=== PATIENT | female | born 1985 | race Caucasian/White ===

== ENCOUNTER 2020-02-09 08:53 | Emergency (ER) | payer OTHER ==
[~2020-02-09] VITALS: Ht 165.1 cm; Wt 104.3 kg
[2020-02-09 09:00] VITALS: BP 149/121
--- NOTE | 2020-02-09 09:00 | NUR ---
PT [place] [employer] FOR PREBOOK. PT WAS ATTMEPTING TO STEAL CAR. PT ADMITS TO METH USE. DENIES ALCOHOL. PTS HR 150S. PT EXTREMELY AGITATED AND RESTLESS. RA. PT AMBULATORY IN HANDCUFFS MEDS: UNOBTAINABLE ALLERGY-UNOBTAINABLE
[2020-02-09] MEDS ORDERED: LORazepam 2 MG/ML VIAL IM ONE ×3 (09:15→10:05)
--- NOTE | 2020-02-09 09:15 | NUR ---
[facility] IM ADMINISTERED BY SEBASTIEN LOVE. PT IN HANDCUFFS. [place] PD AT BEDSIDE. PT YELLING AND ROLLING IN BED.
--- NOTE | 2020-02-09 09:20 | NUR ---
pd phleb at bedside
--- NOTE | 2020-02-09 09:37 | NUR ---
[facility] ADMINISTERED IM. PT CONTINUES TO CHARY AND BRISEYDA AT [facility]
--- NOTE | 2020-02-09 10:32 | NUR ---
PT STARTING TO CALM IN BED. NO LONGER YELLING. [place] PD REMIANS AT BEDSIDE AND PT REMAINS IN HANDCUFFS.
[2020-02-09 10:35] VITALS: BP 107/75
--- NOTE | 2020-02-09 10:35 | NUR ---
Patient discharged with v/s stable. Written and verbal after care instructions given and explained. Patient alert, oriented and verbalized understanding of instructions. Police with in custody. All questions addressed prior to discharge. ID band removed. Patient advised to follow up with PMD. No Rx given. Patient educated on indication of medication including possible reaction and side effects. Opportunity to ask questions provided and answered.
== END 2020-02-09 10:35 ==
LOC: MED 08:53
DX: F15.129 Other stimulant abuse with intoxication, unspecified (principal); R41.82 Altered mental status, unspecified; Z02.89 Encounter for other administrative examinations
CPT/HCPCS: 96372; 99284; J2060; 99281

== ENCOUNTER 2020-05-21 10:16 | Emergency (ER) | payer OTHER, SELFPAY ==
[~2020-05-21] VITALS: Ht 162.6 cm; Wt 95.3 kg
[2020-05-21 10:38] VITALS: BP 113/69
--- NOTE | 2020-05-21 10:42 | NUR ---
Pt c/o cough and body aches since yesterday. + covid contact. medhx: htn
--- NOTE | 2020-05-21 11:04 | NUR ---
Dr. Lyon is evaluating the patient in the OF tent.
--- NOTE | 2020-05-21 11:07 | NUR ---
COVID SWAB SENT TO LAB.
[2020-05-21 11:33] VITALS: BP 113/69
--- NOTE | 2020-05-21 11:34 | NUR ---
Patient discharged with v/s stable. Written and verbal after care instructions given and explained. Patient verbalized understanding. Ambulatory with steady gait. All questions addressed prior to discharge. Advised to follow up with PMD.
--- NOTE | 2020-05-22 20:34 | NUR ---
Positive COVID-19 test results were received from lab. A copy of the test results were given to Infection
== END 2020-05-21 11:32 | disposition home or self-care (01) ==
LOC: MED 10:16
DX: R05 Cough (principal); Z20.828 Contact with and (suspected) exposure to other viral communicable diseases; M79.10 Myalgia, unspecified site; I10 Essential (primary) hypertension
CPT/HCPCS: 99283; U0003

== ENCOUNTER 2020-07-06 09:22 | Emergency (ER) | payer OTHER, SELFPAY ==
[~2020-07-06] VITALS: Ht 162.6 cm; Wt 96.6 kg
[2020-07-06 09:36] VITALS: BP 126/68
[2020-07-06] MEDS ORDERED: NACL 0.9% 500 ML IV ONE (10:20)
[2020-07-06] MEDS ORDERED: ONDANSETRON 4 MG/2 ML VIAL IVP ONE (10:20)
[2020-07-06] MEDS ORDERED: KETOROLAC 30 MG/ML VIAL IVP ONE (10:20)
--- NOTE | 2020-07-06 10:41 | NUR ---
PT AMB TO BED 8
--- NOTE | 2020-07-06 10:45 | NUR ---
Note undone in ED - 07/06/20 at 1127 by CATE 35 Y/O F BIB SELF C/O ABDOMINAL PAIN X 2 DAYS. PT STATES RUQ DULL/CONSTANT 7/10 ABDOMINAL PAIN THAT RADIATES TO HER BACK. PT STATES ASSOCIATED 8/10 THROBBING HEADACHE THAT STARTS AT HER FOREHEAD AND MOVES TO THE BACK OF HER HEAD. (+) NAUSEA, VOMITING X 4 EPISODES 07/05-07/06. (-) DIZZINESS, BLURRY VISION, SOB, CP, PAINFUL URINATION. PT STATES THIS PAIN FEELS SIMILAR TO G[place]STONE EPISODES IN THE PAST. PT PLACED ON CAPSULE INSPECTOR, VSS. EQUAL CHEST RISE AND FALL. LUNG SOUNDS CLEAR. BOWEL SOUNDS PRESENT. BED LOCKED IN LOWEST POSITION, SIDE RAILS X2, CALL LIGHT IN REACH. PMH: PORTAL HTN, GALLSTONES Addendum: 07/06/20 at 1125 by CATE Amendment undone in ED - 07/06/20 at 1126 by CATE 35 Y/O F BIB SELF C/O ABDOMINAL PAIN X 2 DAYS. PT STATES RUQ DULL/CONSTANT 7/10 ABDOMINAL PAIN THAT RADIATES TO HER BACK. PT STATES ASSOCIATED 8/10 THROBBING HEADACHE THAT STARTS AT HER FOREHEAD AND MOVES TO THE BACK OF HER HEAD. PT STATES 07/05 SHE TOOK 800 MG OF TYLENOL WITH NO PAIN RELIEF. PT STATES THIS PAIN FEELS SIMILAR TO GALLSTONE EPISODES IN THE PAST. (+) NAUSEA, VOMITING X 4 EPISODES 07/05-07/06. (-) DIZZINESS, BLURRY VISION, SOB, CP, PAINFUL URINATION. PT PLACED ON CAPSULE INSPECTOR, VSS. EQUAL CHEST RISE AND FALL. LUNG SOUNDS CLEAR. BOWEL SOUNDS PRESENT. BED LOCKED IN LOWEST POSITION, SIDE RAILS X2, CALL LIGHT IN REACH. PMH: PORTAL HTN, GALLSTONES
--- NOTE | 2020-07-06 10:45 | NUR ---
35 Y/O F BIB SELF C/O ABDOMINAL PAIN X 2 DAYS. PT STATES RUQ DULL/CONSTANT 7/10 ABDOMINAL PAIN THAT RADIATES TO HER BACK. PT STATES ASSOCIATED 8/10 THROBBING HEADACHE THAT STARTS AT HER FOREHEAD AND MOVES TO THE BACK OF HER HEAD. PT STATES / SHE TOOK 800 MG OF TYLENOL WITH NO PAIN RELIEF. PT STATES THIS PAIN FEELS SIMILAR TO GALLSTONE EPISODES IN THE PAST. (+) NAUSEA, VOMITING X 4 EPISODES 07/05-07/06. (-) DIZZINESS, BLURRY VISION, SOB, CP, PAINFUL URINATION. PT PLACED ON LUMBER STRAIGHTENED, VSS. EQUAL CHEST RISE AND FALL. LUNG SOUNDS CLEAR. BOWEL SOUNDS PRESENT. BED LOCKED IN LOWEST POSITION, SIDE RAILS X2, CALL LIGHT IN REACH. PMH: PORTAL HTN, GALLSTONES
--- NOTE | 2020-07-06 10:50 | NUR ---
US AT BEDSIDE
--- NOTE | 2020-07-06 11:05 | NUR ---
BLOOD SAMPLES COLLECTED, WALKED TO LAB AND HANDED TO ANGÉLICA GALINDO
[2020-07-06 11:13] LABS: BASOPHILS % (AUTO) 0.6 % (0.0-2.0); EOSINOPHILS # (AUTO) 0.1 K/uL (0-0.4); EOSINOPHILS % (AUTO) 1.5 % (0.0-4.0); HEMATOCRIT 38.1 % (36-48); HEMOGLOBIN 12.9 g/dL (12.0-16.0); LYMPHOCYTES # (AUTO) 1.5 K/uL (2.5-16.5); LYMPHOCYTES % (AUTO) 29.1 % (20.5-51.1); MEAN CORPUSCULAR HEMOGLOBIN 31 pg (27-31); MEAN CORPUSCULAR HGB CONC 34 g/dL (33-37); MEAN CORPUSCULAR VOLUME 91.9 fL (80-94); MONOCYTES # (AUTO) 0.3 K/uL (0.8-1.0); MONOCYTES % (AUTO) 5.6 % (1.7-9.3); NEUTROPHILS # (AUTO) 3.3 K/uL (1.8-7.7); NEUTROPHILS % (AUTO) 63.2 % (42.2-75.2); PLATELET COUNT (AUTO) 309 K/uL (140-450); RED BLOOD CELL COUNT(AUTO) 4.14 MIL/uL (4.20-5.40); RED CELL DISTRIBUTION WIDTH 13.3 % (11.6-13.7); WHITE BLOOD COUNT (AUTO) 5.2 K/uL (4.8-10.8)
--- NOTE | 2020-07-06 11:24 | NUR ---
PT REPOSITIONED IN BED, LIGHTS TURNED OFF AND GIVEN BLANKET. ALL PT NEEDS MET AT THIS TIME. EQUAL CHEST RISE AND FALL. VSS. BED LOCKED IN LOWEST POSITION, SIDE RAILS X2, CALL LIGHT IN REACH
[2020-07-06 11:31] LABS: ALBUMIN 4.5 g/dL (3.4-5.0); ANION GAP 8.5 (8-16); CARBON DIOXIDE 31.1 mmol/L (21-32); CREATININE 0.7 mg/dL (0.6-1.3); POTASSIUM 3.6 mmol/L (3.5-5.1); TOTAL BILIRUBIN 0.5 mg/dL (0.0-1.0)
[2020-07-06 12:25] VITALS: BP 121/61
--- NOTE | 2020-07-06 12:25 | NUR ---
Patient discharged with v/s stable. Written and verbal after care instructions given and explained. Patient alert, oriented and verbalized understanding of instructions. Ambulatory with steady gait. All questions addressed prior to discharge. ID band removed. Patient advised to follow up with PMD. Rx of MOTRIN. ZOFRAN given. Patient educated on indication of medication including possible reaction and side effects. Opportunity to ask questions provided and answered.
== END 2020-07-06 12:25 | disposition home or self-care (01) ==
LOC: MED 09:22
DX: K80.20 Calculus of gallbladder without cholecystitis without obstruction (principal); U07.1 COVID-19
CPT/HCPCS: 36415; 76705; 80053; 81002; 81025; 83690; 85025; 96374; 96375; 99285; J1885; J2405; J7030

== ENCOUNTER 2020-09-01 16:19 | Emergency (ER) | payer OTHER, SELFPAY ==
[~2020-09-01] VITALS: Ht 162.6 cm; Wt 94.3 kg
[~2020-09-01 16:19] MED LIST: ACET-8386 PO; IBUP-2213 PO
[2020-09-01 16:24] VITALS: BP 101/64
[2020-09-01] MEDS ORDERED: DOXY-487 PO (17:45)
[2020-09-01] MEDS ORDERED: AZITHROMYCIN 250 MG TAB PO ONE (17:45)
[2020-09-01] MEDS ORDERED: cefTRIAXone 500 MG in LIDOCAINE MPF 1% 1 ML IM ONE (17:45)
[2020-09-01] MEDS ORDERED: LIDOCAINE MPF 1% 5 ML ONE (17:45)
[2020-09-01] MEDS ORDERED: cefTRIAXone 500 MG VIAL ONE (17:45)
[2020-09-01 17:56] LABS: APPEARANCE,URINE CLEAR (CLEAR); BILIRUBIN,URINE NEGATIVE (NEGATIVE); BLOOD, URINE NEGATIVE (NEGATIVE); COLOR,URINE YELLOW (YELLOW); LEUKOCYTE ESTERASE ,URINE 1+ (NEGATIVE); NITRITE, URINE NEGATIVE (NEGATIVE); PH,URINE 6.5 (5.0-9.0); UGLUCOSE NEGATIVE (NEGATIVE)
[2020-09-01 18:13] VITALS: BP 101/64
[2020-09-01 18:24] LABS: RBC,URINE 0-5 /HPF (0-5)
== END 2020-09-01 18:13 | disposition home or self-care (01) ==
LOC: MED 16:19
DX: N12 Tubulo-interstitial nephritis, not specified as acute or chronic (principal); Z11.3 Encounter for screening for infections with a predominantly sexual mode of transmission
CPT/HCPCS: 36415; 81001; 81025; 87086; 87491; 96372; 99283; J0696; J2001

== ENCOUNTER 2020-10-30 18:12 | Emergency (ER) | payer OTHER ==
[~2020-10-30] VITALS: Ht 162.6 cm; Wt 98.4 kg
[~2020-10-30 18:12] MED LIST changes: +DOXY-487 PO
[2020-10-30 18:26] VITALS: BP 134/63
--- NOTE | 2020-10-30 18:35 | NUR ---
Patient ambulated to bed 9. RN evaluating the patient at bedside.
--- NOTE | 2020-10-30 18:38 | NUR ---
35 y/o F brought in from home with c/c left knee pain since Thursday. Patient reports she was at the supermarket and her sandals got caught, causing her to have a mechanical fall to the floor. Patient states she hit her left knee. Patient reports left knee pain 9/10, "burning/constant," non-radiating pain. Patient reports slight pain to her left foot as well. Pt states Tylenol 500mg prior to arrival, ice/heat packs without relief. Pt denies LOC, dizziness, headache, blurry vision, any other recent trauma/falls/injuries. +CMS to left foot. PMH: Denies Meds: Denies NKA Sx: Cholecystectomy x 2 months ago
--- NOTE | 2020-10-30 18:39 | NUR ---
Dr. Mirza is evaluating patient at bedside.
[2020-10-30] MEDS ORDERED: KETOROLAC 30 MG/ML VIAL IM ONE (18:45)
--- NOTE | 2020-10-30 18:57 | NUR ---
finishing lab technician at bedside.
--- NOTE | 2020-10-30 19:12 | NUR ---
REPORT RECEIVED FROM KATE CORTEZ FOR CONTINUATION OF CARE.
--- NOTE | 2020-10-30 19:30 | NUR ---
PATIENT LAYING IN BED, HOB ELEVATED, REPORTS ONGOING KNEE PAIN ERMD MADE AWARE.
--- NOTE | 2020-10-30 19:30 | NUR ---
PATIENT ABLE TO MOVE HER L LEG/FOOT/KNEE/TOES, CAP REFILL <3 SEC, PULSES PRESENT BILATERALLY, MILD EDEMA NOTED TO BOTH FEET BILATERALLY.
[2020-10-30] MEDS ORDERED: NAPR-54 PO (19:42)
--- NOTE | 2020-10-30 20:45 | NUR ---
KNEE IMMOBILIZER PLACED ON PT L LEG AND FASTENED. +CSM
--- NOTE | 2020-10-30 20:46 | NUR ---
PT GIVEN INSTRUCTION ON PROPER USE OF CRUTCHES. CRUTCHES FITTED TO PT HEIGHT AND ARM LENGTH. PT DEMONSTRATED SAFE USE FOR APPROXIMATELY 40 FEET, PT STATED SHE FELT COMFORTABLE WITH USE.
[2020-10-30] MEDS ORDERED: ACETAMINOPHEN EXTRA STRENGTH 500 MG TAB PO ONE (21:00)
[2020-10-30 21:13] VITALS: BP 130/62
--- NOTE | 2020-10-30 21:13 | NUR ---
Patient discharged with v/s stable. Written and verbal after care instructions given and explained. Patient alert, oriented and verbalized understanding of instructions. Ambulatory with crutches with steady gait. All questions addressed prior to discharge. ID band removed. Patient advised to follow up with PMD. Rx of naprosyn given. Patient educated on indication of medication including possible reaction and side effects. Opportunity to ask questions provided and answered. Pt provided w/ an ice pack for comfort. per pt request contacted her fpc for a ride.
== END 2020-10-30 21:13 | disposition home or self-care (01) ==
LOC: MED 18:12
DX: S83.92XA Sprain of unspecified site of left knee, initial encounter (principal); Z90.49 Acquired absence of other specified parts of digestive tract; Z79.899 Other long term (current) drug therapy; W01.0XXA Fall on same level from slipping, tripping and stumbling without subsequent striking against object, initial encounter; Y93.89 Activity, other specified; Y92.89 Other specified places as the place of occurrence of the external cause; Y99.8 Other external cause status
CPT/HCPCS: 29505; 73562; 73630; 96372; 99284; J1885

== ENCOUNTER 2020-11-16 06:55 | Emergency (ER) | payer OTHER ==
[~2020-11-16] VITALS: Ht 162.6 cm; Wt 99.8 kg
[~2020-11-16 06:55] MED LIST changes: +NAPR-54 PO
[2020-11-16 07:07] VITALS: BP 118/66
[2020-11-16] MEDS ORDERED: BENZONATATE 100 MG CAPLF PO STA (07:13)
[2020-11-16] MEDS ORDERED: ALBUTEROL HFA MDI 90 MCG/ACTUATION 8 GM INH ONE (07:15)
[2020-11-16] MEDS ORDERED: ACETAMINOPHEN 325 MG TAB PO ONE (07:25)
[2020-11-16] MEDS ORDERED: ALBU0.0912 INH (09:29)
[2020-11-16] MEDS ORDERED: BENZ-196 PO (09:29)
[2020-11-16] MEDS ORDERED: APAP-896 PO (09:29)
[2020-11-16 09:41] VITALS: BP 118/66
== END 2020-11-16 09:42 | disposition home or self-care (01) ==
LOC: MED 06:55
DX: J06.9 Acute upper respiratory infection, unspecified (principal); J45.909 Unspecified asthma, uncomplicated; Z20.822 Contact with and (suspected) exposure to COVID-19
CPT/HCPCS: 87081; 87804; 94664; 99283; 99285; J3535; U0003

== ENCOUNTER 2020-11-26 16:55 | Emergency (ER) | payer OTHER ==
[~2020-11-26] VITALS: Ht 162.6 cm; Wt 98.9 kg
[~2020-11-26 16:55] MED LIST changes: +ALBU0.0912 INH; +APAP-896 PO; +BENZ-196 PO
[2020-11-26 17:26] VITALS: BP 113/74
[2020-11-26 18:18] LABS: BASOPHILS # (AUTO) 0.1 K/uL (0.00-0.22); BASOPHILS % (AUTO) 0.5 % (0.0-2.0); EOSINOPHILS # (AUTO) 0.1 K/uL (0-0.4); EOSINOPHILS % (AUTO) 0.7 % (0.0-4.0); LYMPHOCYTES # (AUTO) 1.9 K/uL (2.5-16.5); MEAN CORPUSCULAR HEMOGLOBIN 31 pg (27-31); MEAN CORPUSCULAR HGB CONC 34 g/dL (33-37); MEAN CORPUSCULAR VOLUME 90.2 fL (80-94); MONOCYTES # (AUTO) 0.6 K/uL (0.8-1.0); NEUTROPHILS # (AUTO) 7.5 K/uL (1.8-7.7); NEUTROPHILS % (AUTO) 73.8 % (42.2-75.2); PLATELET COUNT (AUTO) 352 K/uL (140-450); RED BLOOD CELL COUNT(AUTO) 4.55 MIL/uL (4.20-5.40); RED CELL DISTRIBUTION WIDTH 14.3 % (11.6-13.7); WHITE BLOOD COUNT (AUTO) 10.2 K/uL (4.8-10.8)
[2020-11-26 18:23] LABS: APPEARANCE,URINE CLEAR (CLEAR); BILIRUBIN,URINE NEGATIVE (NEGATIVE); BLOOD, URINE TRACE-L (NEGATIVE); COLOR,URINE YELLOW (YELLOW); LEUKOCYTE ESTERASE ,URINE TRACE (NEGATIVE); NITRITE, URINE NEGATIVE (NEGATIVE); UGLUCOSE NEGATIVE (NEGATIVE)
[2020-11-26 18:34] LABS: RBC,URINE 0-5 /HPF (0-5); WBC,URINE 0-5 /HPF (0-5)
[2020-11-26 19:01] LABS: ALBUMIN 4.5 g/dL (3.4-5.0); ANION GAP 10.7 (8-16); CARBON DIOXIDE 28.2 mmol/L (21-32); CREATININE 0.8 mg/dL (0.6-1.3); POTASSIUM 3.9 mmol/L (3.5-5.1); TOTAL BILIRUBIN 0.3 mg/dL (0.0-1.0)
--- NOTE | 2020-11-26 20:10 | NUR ---
PT AMBULATED TO BED 2
--- NOTE | 2020-11-26 20:15 | NUR ---
35/F PT C/O NAUSEA VOMITTING AND DIARRHEA WITH STOMACH ACHE 10/10 SHARP, CONSTANT STARTED TODAY. PT STATED SHE WENT ON A HIKE THIS MORNING WITH EMPTY STOMACH, THEN WENT HOME AND ATE SOME BURGER AND FRIES THEN DURING HER MEAL SHE HAD DIARRHEA. PT DENIES ANY FEVER, CHILLS, PAINFUL URINATION. PMH: PORTAL HTN, ASTHMA, GALL BLADDER REMOVAL. NKA
[2020-11-26] MEDS ORDERED: KETOROLAC 30 MG/ML VIAL IM ONE (20:30)
[2020-11-26] MEDS ORDERED: ONDANSETRON 4 MG ODT PO ONE (20:30)
[2020-11-26] MEDS ORDERED: ONDA-24 PO (22:42)
[2020-11-27] VITALS: BP 118/71
== END 2020-11-27 00:27 | disposition home or self-care (01) ==
LOC: MED 16:55
DX: R11.2 Nausea with vomiting, unspecified (principal); R19.7 Diarrhea, unspecified; R10.9 Unspecified abdominal pain; Z79.899 Other long term (current) drug therapy
CPT/HCPCS: 36415; 74176; 80053; 81001; 81025; 83690; 85025; 96372; 99284; J1885; Q0162

== ENCOUNTER 2021-01-07 17:33 | Emergency (ER) | payer OTHER ==
[~2021-01-07] VITALS: Ht 162.6 cm; Wt 104.8 kg
[~2021-01-07 17:33] MED LIST changes: +ONDA-24 PO
[2021-01-07 18:37] VITALS: BP 117/70
--- NOTE | 2021-01-07 18:43 | NUR ---
LOBBY. PT GIVEN URINE CUP
--- NOTE | 2021-01-07 18:58 | NUR ---
PT AMBULATED TO BRIAN. ARI MARTINEZ EVALUATING PT IN CHAIR.
[2021-01-07] MEDS ORDERED: NITR100C7 PO (18:59)
--- NOTE | 2021-01-07 19:08 | NUR ---
NO NURSING INTERVENTIONS PROVIDED. PT SEEN AND TREATED BY ARI MARTINEZ
--- NOTE | 2021-01-07 19:09 | NUR ---
Patient discharged with v/s stable. Written and verbal after care instructions ABOUT UTI AND MEDICATIONS given and explained. Patient alert, oriented and verbalized understanding of instructions. Ambulatory with steady gait. All questions addressed prior to discharge. ID band removed. Patient advised to follow up with PMD. Rx of MACROBID 100MG given. Patient educated on indication of medication including possible reaction and side effects. Opportunity to ask questions provided and answered.
[2021-01-07 19:11] VITALS: BP 117/70
== END 2021-01-07 19:09 | disposition home or self-care (01) ==
LOC: MED 17:33
DX: N39.0 Urinary tract infection, site not specified (principal); J45.909 Unspecified asthma, uncomplicated; Z90.49 Acquired absence of other specified parts of digestive tract; Z79.899 Other long term (current) drug therapy
CPT/HCPCS: 81002; 81025; 99283

== ENCOUNTER 2021-02-05 08:13 | Emergency (ER) | payer OTHER, SELFPAY ==
[~2021-02-05] VITALS: Ht 162.6 cm; Wt 108.0 kg
[~2021-02-05 08:13] MED LIST changes: +NITR100C7 PO
[2021-02-05 08:16] VITALS: BP 116/57
--- NOTE | 2021-02-05 08:25 | NUR ---
DR BLOCK EXAMINING PT IN TRIAGE
--- NOTE | 2021-02-05 08:30 | NUR ---
PT W/C ASSISSTED TO BED 04
--- NOTE | 2021-02-05 08:32 | NUR ---
received in bed 4, laying flat with pillow which is patients position of choice. Warm blanket applied for comfort.
[2021-02-05] MEDS ORDERED: LIDOCAINE MPF 1% 10 MG/ML VIAL INJ ONE (08:45)
[2021-02-05] MEDS ORDERED: KETOROLAC 60 MG/2 ML VIAL IM ONE (08:45)
--- NOTE | 2021-02-05 09:15 | NUR ---
RESTING QUIETLY, APPEARS COMFORTABLE.
--- NOTE | 2021-02-05 09:16 | NUR ---
medicated for pain, observed for effect.
[2021-02-05] MEDS ORDERED: LID5T TP (10:21)
--- NOTE | 2021-02-05 10:25 | NUR ---
DR BLOCK IN FOR REEVAL. PLAN IS TO DISCHARGE HOME WITH RX AND WORK NOTE. PATIENT AGREES WITH PLAN OF CARE.
[2021-02-05] MEDS ORDERED: IBUP-1842 PO (10:51)
--- NOTE | 2021-02-05 10:51 | NUR ---
Patient discharged with v/s stable. Written and verbal after care instructions ABOUT MEDICATIONS AND ACUTE BACK PAIN given and explained. Patient alert, oriented and verbalized understanding of instructions. Ambulatory with steady gait. All questions addressed prior to discharge. ID band removed. Patient advised to follow up with PMD. Rx of IBUPROFEN AND LIDOCAINE PATCH given. Patient educated on indication of medication including possible reaction and side effects. Opportunity to ask questions provided and answered.
== END 2021-02-05 10:51 | disposition home or self-care (01) ==
LOC: MED 08:13
DX: M54.5 Low back pain (principal); J45.909 Unspecified asthma, uncomplicated; Z90.49 Acquired absence of other specified parts of digestive tract; Z79.899 Other long term (current) drug therapy
CPT/HCPCS: 20552; 81025; 96372; 99283; J1885; J2001

== ENCOUNTER 2021-02-20 08:25 | Emergency (ER) | payer OTHER, SELFPAY ==
[~2021-02-20] VITALS: Ht 162.6 cm; Wt 104.3 kg
[~2021-02-20 08:25] MED LIST changes: +IBUP-1842 PO; +LID5T TP
[2021-02-20 08:35] VITALS: BP 115/76
--- NOTE | 2021-02-20 09:27 | NUR ---
35 YO FEMALE BIBS C/O LOWER BACK PAIN. 9/10 STABBING THAT RADIATES TO HIPS AND RIGHT LEG. PT STATES SHE WAS HERE X2 WEEKS AGO AND WAS TREATED, SINCE THEN THE PAIN HAS NOT GONE AWAY AND MEDICATION HAS NOT PROVIDED RELIEF. SHE HAS SEEN PCP WITHIN THE LAST 2 WEEKS AND WAS PRESCRIBED IBUPROFEN WHICH SHE STATES ALSO PROVIDES NO RELIEF. DENIES FEVER, CHILLS, SOB, N/V/D. A&OX4, RR EVEN AND UNLABORED. PMH: GALLBLADDER REMOVAL, FATTY LIVER, PORTAL HTN. NKDA
--- NOTE | 2021-02-20 09:59 | NUR ---
MD BLOCK AT BEDSIDE.
[2021-02-20] MEDS ORDERED: KETOROLAC 60 MG/2 ML VIAL IM ONE (10:05)
[2021-02-20] MEDS ORDERED: HYDROcodone/APAP 5/325 MG 1 TAB TAB PO ONE (10:05)
--- NOTE | 2021-02-20 10:29 | NUR ---
PT TRANSFERRED TO CT VIA [facility]
--- NOTE | 2021-02-20 11:00 | NUR ---
PATIENT RESTING IN BED, RR EVEN AND UNLABORED.
[2021-02-20] MEDS ORDERED: NAPR-1704 PO (11:32)
[2021-02-20 11:56] VITALS: BP 104/59
== END 2021-02-20 11:56 | disposition home or self-care (01) ==
LOC: MED 08:25
DX: M51.26 Other intervertebral disc displacement, lumbar region (principal); J45.909 Unspecified asthma, uncomplicated; Z79.899 Other long term (current) drug therapy
CPT/HCPCS: 72131; 81002; 81025; 96372; 99284; J1885

== ENCOUNTER 2021-04-18 10:32 | Emergency (ER) | payer OTHER, SELFPAY ==
[~2021-04-18] VITALS: Ht 162.6 cm; Wt 106.2 kg
[~2021-04-18 10:32] MED LIST changes: +NAPR-1704 PO
[2021-04-18 10:44] VITALS: BP 138/88
--- NOTE | 2021-04-18 11:20 | NUR ---
GREEN BUILDING ENERGY ENGINEER BEDSIDE COLLECTING BLOOD WORK
--- NOTE | 2021-04-18 11:24 | NUR ---
XRAY BEDSIDE WITH PATIENT
--- NOTE | 2021-04-18 11:35 | NUR ---
35 Y FEMLA WITH C/O INTERMITENT LEFT CHEST PAIN RADIATING TO HER NECK, L ARM, AND L SIDE. PT ALSO HAS C/O OF ENTIRE L SIDE PAIN THAT IS CONSTNANT FOR THE PAST 3 DAYS. PT HAS C/O HEADACHE, BLURRED VISION, AND LIGHT HEADENESS WELL. PT STATED "SHE DOESN'T FOOD GOOD AND JUST DOESN'T FEEL RIGHT." PT ALSO STATED SHE FEELS LIKE HER LE ARE SWOLLEN. UPON ASSESSMENT S1/S2 HEARD, BREATH SOUNDS CLEAR, AND PT IN NSR. NO EDEMA NOTED IN LE AT THIS TIME. PMH: HTN, GALL BLADDER REMOVAL, PORTAL HYPOTENSION NKA
--- NOTE | 2021-04-18 11:36 | NUR ---
PT PROVIDED WITH BLANKET BEDSIDE
[2021-04-18 11:38] LABS: BASOPHILS % (AUTO) 0.6 % (0.0-2.0); EOSINOPHILS # (AUTO) 0.2 K/uL (0-0.4); EOSINOPHILS % (AUTO) 2.7 % (0.0-4.0); HEMATOCRIT 37.8 % (36-48); HEMOGLOBIN 12.7 g/dL (12.0-16.0); LYMPHOCYTES # (AUTO) 1.7 K/uL (2.5-16.5); LYMPHOCYTES % (AUTO) 29.1 % (20.5-51.1); MEAN CORPUSCULAR HEMOGLOBIN 31 pg (27-31); MEAN CORPUSCULAR HGB CONC 34 g/dL (33-37); MEAN CORPUSCULAR VOLUME 93.2 fL (80-94); MONOCYTES # (AUTO) 0.4 K/uL (0.8-1.0); MONOCYTES % (AUTO) 7.5 % (1.7-9.3); NEUTROPHILS # (AUTO) 3.4 K/uL (1.8-7.7); NEUTROPHILS % (AUTO) 60.1 % (42.2-75.2); PLATELET COUNT (AUTO) 305 K/uL (140-450); RED BLOOD CELL COUNT(AUTO) 4.06 MIL/uL (4.20-5.40); RED CELL DISTRIBUTION WIDTH 13.6 % (11.6-13.7); WHITE BLOOD COUNT (AUTO) 5.7 K/uL (4.8-10.8)
--- NOTE | 2021-04-18 11:47 | NUR ---
dr. raya bedside evaluating pt
[2021-04-18 11:55] LABS: ALBUMIN 4.1 g/dL (3.4-5.0); ANION GAP 16.3 (8-16); CARBON DIOXIDE 25.5 mmol/L (21-32); CREATININE 0.8 mg/dL (0.6-1.3); POTASSIUM 3.8 mmol/L (3.5-5.1); TOTAL BILIRUBIN 0.4 mg/dL (0.0-1.0)
--- NOTE | 2021-04-18 12:58 | NUR ---
ULTRASOUND BEDSIDE WITH PATIENT
--- NOTE | 2021-04-18 13:49 | NUR ---
DR. GABRIEL BEDSIDE SPEAKING WITH PATIENT
[2021-04-18] MEDS ORDERED: KETOROLAC 60 MG/2 ML VIAL IM ONE (13:55)
[2021-04-18] MEDS ORDERED: DEXAMETHASONE 4 MG/ML VIAL PO ONE (13:55)
[2021-04-18] MEDS ORDERED: ACETAMINOPHEN 325 MG TAB PO ONE (13:55)
[2021-04-18] MEDS ORDERED: METH4TAB1 PO (14:00)
[2021-04-18] MEDS ORDERED: NAPR-54 PO (14:00)
[2021-04-18 14:22] VITALS: BP 142/72
--- NOTE | 2021-04-18 14:22 | NUR ---
Patient discharged with v/s stable. Written and verbal after care instructions given and explained. Patient alert, oriented and verbalized understanding of instructions. Ambulatory with steady gait. All questions addressed prior to discharge. ID band removed. Patient advised to follow up with PMD. Rx of MEDROL AND NAPROSYN given. Patient educated on indication of medication including possible reaction and side effects. Opportunity to ask questions provided and answered.
== END 2021-04-18 14:22 | disposition home or self-care (01) ==
LOC: MED 10:32
DX: R07.89 Other chest pain (principal); R60.0 Localized edema; I10 Essential (primary) hypertension; Z79.899 Other long term (current) drug therapy; Z90.49 Acquired absence of other specified parts of digestive tract; Z98.890 Other specified postprocedural states
CPT/HCPCS: 36415; 71045; 80053; 84484; 85025; 93005; 93971; 96372; 99285; J1100; J1885; Q0092

== ENCOUNTER 2021-05-01 12:12 | Emergency (ER) | payer OTHER, SELFPAY ==
[~2021-05-01] VITALS: Ht 162.6 cm; Wt 104.3 kg
[~2021-05-01 12:12] MED LIST changes: -ALBU0.0912 INH; -APAP-896 PO; -BENZ-196 PO; -DOXY-487 PO; -IBUP-1842 PO; +METH4TAB1 PO; -NAPR-1704 PO; -NITR100C7 PO; -ONDA-24 PO
[2021-05-01 12:35] VITALS: BP 127/81
[2021-05-01] MEDS ORDERED: PHEN177S23 PO (13:25)
[2021-05-01] MEDS ORDERED: AZIT250T4 PO (13:25)
[2021-05-01] MEDS ORDERED: PROM118S5 PO (13:25)
[2021-05-01] MEDS ORDERED: NAPR-54 PO (13:25)
[2021-05-01 13:46] VITALS: BP 127/81
--- NOTE | 2021-05-01 13:47 | NUR ---
Patient discharged with v/s stable. Written and verbal after care instructions given and explained. Patient alert, oriented and verbalized understanding of instructions. Ambulatory with steady gait. All questions addressed prior to discharge. ID band removed. Patient advised to follow up with PMD. Rx of AZITHROMYCIN, NAPROXEN, PHENOL, PROMETHAZINE SYRUP given. Patient educated on indication of medication including possible reaction and side effects. Opportunity to ask questions provided and answered.
== END 2021-05-01 13:47 | disposition home or self-care (01) ==
LOC: MED 12:12
DX: J02.9 Acute pharyngitis, unspecified (principal); Z20.822 Contact with and (suspected) exposure to COVID-19; M79.10 Myalgia, unspecified site; J45.909 Unspecified asthma, uncomplicated; I10 Essential (primary) hypertension; Z90.49 Acquired absence of other specified parts of digestive tract; Z79.899 Other long term (current) drug therapy
CPT/HCPCS: 71045; 99284; U0003

== ENCOUNTER 2021-07-28 19:57 | Emergency (ER) | payer OTHER, SELFPAY ==
[~2021-07-28] VITALS: Ht 162.6 cm; Wt 108.9 kg
[~2021-07-28 19:57] MED LIST changes: +AZIT250T4 PO; +PHEN177S23 PO; +PROM118S5 PO
[2021-07-28 20:08] VITALS: BP 128/90
[2021-07-28] MEDS ORDERED: ONDANSETRON 4 MG/2 ML VIAL IVP ONE (20:55)
[2021-07-28] MEDS ORDERED: ACETAMINOPHEN EXTRA STRENGTH 500 MG TAB PO ONE (20:55)
[2021-07-28] MEDS ORDERED: NACL 0.9% 1,000 ML IV ONE (20:55)
--- NOTE | 2021-07-28 22:00 | NUR ---
36 YO F BIB SELF WITH C/C OF ABD PAIN AND VOMITING XTODAY. PT HAS NOT HAD ANY EPISODES OF VOMITING IN ER. RECEIVED 2ND VACCINE ON THE . C/O SWELLING IN LEGS. HAS BEEN HERE BEFORE FOR SAME COMPLAINTS PMH : PORTAL HTN
[2021-07-28] MEDS ORDERED: KETOROLAC 15 MG/ML VIAL ONE (22:03)
--- NOTE | 2021-07-28 22:05 | NUR ---
RECEIVED VERBAL ORDER FROM TO GIVE PT TORADOL 15MG IVP.
[2021-07-28 22:16] LABS: BASOPHILS % (AUTO) 0.1 % (0.0-2.0); EOSINOPHILS # (AUTO) 0.1 K/uL (0-0.4); EOSINOPHILS % (AUTO) 1.5 % (0.0-4.0); HEMATOCRIT 38.6 % (36-48); HEMOGLOBIN 13.3 g/dL (12.0-16.0); LYMPHOCYTES # (AUTO) 0.5 K/uL (2.5-16.5); LYMPHOCYTES % (AUTO) 8.8 % (20.5-51.1); MEAN CORPUSCULAR HEMOGLOBIN 31 pg (27-31); MEAN CORPUSCULAR HGB CONC 34 g/dL (33-37); MEAN CORPUSCULAR VOLUME 90.1 fL (80-94); MONOCYTES # (AUTO) 0.3 K/uL (0.8-1.0); MONOCYTES % (AUTO) 5.5 % (1.7-9.3); NEUTROPHILS # (AUTO) 5.1 K/uL (1.8-7.7); NEUTROPHILS % (AUTO) 84.1 % (42.2-75.2); PLATELET COUNT (AUTO) 275 K/uL (140-450); RED BLOOD CELL COUNT(AUTO) 4.28 MIL/uL (4.20-5.40); RED CELL DISTRIBUTION WIDTH 13.7 % (11.6-13.7); WHITE BLOOD COUNT (AUTO) 6.1 K/uL (4.8-10.8)
[2021-07-28] MEDS ORDERED: KETOROLAC 15 MG/ML VIAL IVP ONE (22:20)
[2021-07-28 22:37] LABS: ALBUMIN 3.8 g/dL (3.4-5.0); ANION GAP 16.1 (8-16); CARBON DIOXIDE 24.6 mmol/L (21-32); CREATININE 0.8 mg/dL (0.6-1.3); POTASSIUM 3.7 mmol/L (3.5-5.1); TOTAL BILIRUBIN 0.6 mg/dL (0.0-1.0)
--- NOTE | 2021-07-29 00:41 | NUR ---
PT APPEARS TO RESTING. EYES ARE CLOSED, OPENS TO SOUND. VSS. PT IS IN STABLE CONDITION. ALL NEEDS MET AT THIS TIME. BED LOCKED IN LOWEST POSITION, SIDE RAILS X2 FOR SAFETY.
[2021-07-29] MEDS ORDERED: ONDA-188 PO (02:38)
--- NOTE | 2021-07-29 02:38 | NUR ---
VERBAL ORDER TO GIVE ZOFRAN 4MG IVP. ORDER CARRIED OUT.
[2021-07-29] MEDS ORDERED: ONDANSETRON 4 MG/2 ML VIAL IVP ONE (02:40)
[2021-07-29 02:45] VITALS: BP 110/58
== END 2021-07-29 02:45 | disposition home or self-care (01) ==
LOC: MED 19:57
DX: K56.7 Ileus, unspecified (principal); K76.0 Fatty (change of) liver, not elsewhere classified; Z20.822 Contact with and (suspected) exposure to COVID-19; R11.2 Nausea with vomiting, unspecified
CPT/HCPCS: 36415; 71045; 74177; 80053; 81025; 83690; 84484; 85025; 87426; 87804; 93005; 96361; 96374; 96375; 96376; 99285; J1885; J2405; J7030; Q0092; Q9967; U0003

== ENCOUNTER 2022-01-01 06:10 | Emergency (ER) | payer OTHER ==
[~2022-01-01] VITALS: Ht 162.6 cm; Wt 117.9 kg
[~2022-01-01 06:10] MED LIST changes: +ONDA-188 PO
[2022-01-01 06:30] VITALS: BP 101/66
--- NOTE | 2022-01-01 06:33 | NUR ---
to lobby a/w bed ambulatory
[2022-01-01 06:52] LABS: APPEARANCE,URINE CLEAR (CLEAR); BILIRUBIN,URINE NEGATIVE (NEGATIVE); BLOOD, URINE 1+ (NEGATIVE); COLOR,URINE YELLOW (YELLOW); LEUKOCYTE ESTERASE ,URINE 3+ (NEGATIVE); NITRITE, URINE NEGATIVE (NEGATIVE); UGLUCOSE NEGATIVE (NEGATIVE)
--- NOTE | 2022-01-01 06:54 | NUR ---
SEEN AND EXAMINED BY AMANDA
[2022-01-01] MEDS ORDERED: KETOROLAC 60 MG/2 ML VIAL IM ONE (07:30)
--- NOTE | 2022-01-01 07:48 | NUR ---
36/F PRESENTS TO ED WITH C/O LOWER BACK PAIN, DYSURIA AND INCREASED URINARY FREQUENCY X3 DAYS. PATIENT REPORTS MIGRAINE, NAUSEA AND PHOTOPHOBIA WELL. PATIENT REPORTS HX OF RECURRENT UTI'S, PATIENT REPORTS TAKING IBUPROFEN WITH NO RELIEF. PATIENT DENIES V/D, FEVER, COUGH OR RECENT SICK CONTACTS.
[2022-01-01] MEDS ORDERED: NITR100C7 PO (08:10)
[2022-01-01] MEDS ORDERED: ACET-9496 PO (08:10)
[2022-01-01] MEDS ORDERED: PHEN-1877 PO (08:10)
[2022-01-01] MEDS ORDERED: ONDA-188 PO (08:10)
[2022-01-01 08:18] VITALS: BP 101/66
--- NOTE | 2022-01-01 08:19 | NUR ---
Patient discharged with v/s stable. Written and verbal after care instructions ABOUT MIGRAINE AND UTI given and explained. Patient alert, oriented and verbalized understanding of instructions. Ambulatory with steady gait. All questions addressed prior to discharge. ID band removed. Patient advised to follow up with PMD. Rx of EXCEDRIN, MARCROBID, ZOFRAN AND PYRIDIUM given. Patient educated on indication of medication including possible reaction and side effects. Opportunity to ask questions provided and answered.
--- NOTE | 2022-01-03 19:00 | NUR ---
LATE ENTRY. RECEIVED POSITIVE URINE CULTURE. DISCREPANCY LOG SIGNED BY DR SARGENT. TREATMENT APPROPRIATE. FORM PLACED IN BINDER.
== END 2022-01-01 08:18 | disposition home or self-care (01) ==
LOC: MED 06:10
DX: N39.0 Urinary tract infection, site not specified (principal); G43.909 Migraine, unspecified, not intractable, without status migrainosus; J45.909 Unspecified asthma, uncomplicated; I10 Essential (primary) hypertension; I25.10 Atherosclerotic heart disease of native coronary artery without angina pectoris
CPT/HCPCS: 81001; 81025; 87086; 96372; 99283; J1885

== ENCOUNTER 2022-03-12 18:34 | Emergency (ER) | payer BC, OTHER ==
[~2022-03-12] VITALS: Ht 162.6 cm; Wt 122.5 kg
[~2022-03-12 18:34] MED LIST changes: +ACET-9496 PO; +NITR100C7 PO; +PHEN-1877 PO
[2022-03-12 18:36] VITALS: BP 145/92
--- NOTE | 2022-03-12 18:47 | NUR ---
PT AMB TO BED 8.
--- NOTE | 2022-03-12 19:02 | NUR ---
36/F PRESENTS TO ED WITH C/O LOWER ABD PAIN, BILATERAL FLANK PAIN AND DYSURIA X5 DAYS. REPORTS TAKING AZO WITH NO RELIEF, STATING PAIN WORSENING THE LAST TWO DAYS AND C/O NAUSEA AND DIARRHEA TODAY. PATIENT DENIES RECENT FEVERS, VOMITING, HEMATURIA OR RECENT SICK CONTACTS.
--- NOTE | 2022-03-12 19:11 | NUR ---
Pt report given to TOBIAS QUEEN. Transfer of care at this time.
--- NOTE | 2022-03-12 19:19 | NUR ---
DR HUTCHINS AT BEDSIDE
[2022-03-12] MEDS ORDERED: KETOROLAC 60 MG/2 ML VIAL IM ONE (19:25)
[2022-03-12] MEDS ORDERED: KETOROLAC 30 MG/ML VIAL IVP ONE (19:25)
[2022-03-12] MEDS ORDERED: ONDANSETRON 4 MG/2 ML VIAL IVP ONE (19:25)
[2022-03-12] MEDS ORDERED: NACL 0.9% 1,000 ML IV ONE (19:25)
[2022-03-12] MEDS ORDERED: PHEN-1877 PO ×4 (19:34→21:41)
[2022-03-12] MEDS ORDERED: IBUP-2213 PO ×4 (19:34→21:41)
[2022-03-12] MEDS ORDERED: CIPR500T4 PO ×4 (19:34→21:41)
[2022-03-12] MEDS ORDERED: ONDA8TAB87 PO ×4 (19:34→21:41)
--- NOTE | 2022-03-12 19:51 | NUR ---
36YR OLD FEMALE C/O UTI SX . PT STATES SHE HAS FREQ UTI IN THE PAST. SX FOR 5 DAYS DENIES FEVER CP SOB. LOWER ABD PAIN RADIATES TO LOWER BACK . PAIN LEVEL 9/10. PT IS A&OX4. SKIN WARM DRY AND INTACT. BED AT LOWEST LEVEL . SIDE RAILS UP X2. NDKA
[2022-03-12 20:42] VITALS: BP 118/73
--- NOTE | 2022-03-12 20:42 | NUR ---
Patient discharged with v/s stable. Written and verbal after care instructions given and explained. Patient alert, oriented and verbalized understanding of instructions. Ambulatory with steady gait. All questions addressed prior to discharge. ID band removed. Patient advised to follow up with PMD. Rx of CIPRO ZOFRAN PYRIDIUM given.
--- NOTE | 2022-03-12 21:05 | NUR ---
The patient's care was reviewed and supervised by Livia Gonzales RN, RN.
--- NOTE | 2022-03-14 19:27 | NUR ---
LATE ENTRY. RECEIVED POSITIVE URINE CULTURE. FORM SIGNED BY DR DOUGHERTY, TREATMENT APPROPRIATE. FORM PLACED IN BINDER
== END 2022-03-12 20:42 | disposition home or self-care (01) ==
LOC: MED 18:34
DX: N39.0 Urinary tract infection, site not specified (principal); R11.0 Nausea; J45.909 Unspecified asthma, uncomplicated; I10 Essential (primary) hypertension; Z90.49 Acquired absence of other specified parts of digestive tract; Z79.899 Other long term (current) drug therapy; Z79.2 Long term (current) use of antibiotics; Z79.1 Long term (current) use of non-steroidal anti-inflammatories (NSAID); Z79.891 Long term (current) use of opiate analgesic
CPT/HCPCS: 81002; 81025; 87086; 96361; 96374; 96375; 99284; J1885; J2405; J7030

== ENCOUNTER 2022-04-16 17:32 | Emergency (ER) | payer BC, OTHER ==
[~2022-04-16] VITALS: Ht 165.1 cm; Wt 86.2 kg
[~2022-04-16 17:32] MED LIST changes: +CIPR500T4 PO; +ONDA8TAB87 PO
[2022-04-16 17:47] VITALS: BP 132/79
[2022-04-16] MEDS ORDERED: ONDANSETRON 4 MG ODT PO ONE (18:20)
[2022-04-16] MEDS ORDERED: PYR100 PO (18:37)
[2022-04-16] MEDS ORDERED: NITR100C7 PO (18:37)
[2022-04-16] MEDS ORDERED: ONDA-188 SL (18:37)
--- NOTE | 2022-04-16 18:48 | NUR ---
Patient discharged with v/s stable. Written and verbal after care instructions given and explained. Patient alert, oriented and verbalized understanding of instructions. Ambulatory with steady gait. All questions addressed prior to discharge. ID band removed. Patient advised to follow up with PMD. Rx of MACROBID, PYRIDIUM, ZOFRAN given. Patient educated on indication of medication including possible reaction and side effects. Opportunity to ask questions provided and answered.
== END 2022-04-16 18:47 | disposition home or self-care (01) ==
LOC: MED 17:32
DX: N39.0 Urinary tract infection, site not specified (principal); J45.909 Unspecified asthma, uncomplicated; I10 Essential (primary) hypertension; I25.10 Atherosclerotic heart disease of native coronary artery without angina pectoris; Z79.899 Other long term (current) drug therapy
CPT/HCPCS: 81002; 81025; 99283; Q0162

== ENCOUNTER 2022-11-27 17:45 | Emergency (ER) | payer BC, OTHER ==
[~2022-11-27] VITALS: Ht 162.6 cm; Wt 113.4 kg
[~2022-11-27 17:45] MED LIST changes: -ACET-8386 PO; +ACET-8905 PO; +ONDA-188 SL; +PYR100 PO
[2022-11-27 18:01] VITALS: BP 132/71
--- NOTE | 2022-11-27 18:06 | NUR ---
Patient ambulated to bed 8.
--- NOTE | 2022-11-27 18:24 | NUR ---
ARI Galarza evaluating patient at bedside.
--- NOTE | 2022-11-27 18:27 | NUR ---
The patient's care was reviewed and supervised by [place] [facility], RN.
[2022-11-27] MEDS ORDERED: KETOROLAC 30 MG/ML VIAL IM ONE (18:30)
[2022-11-27] MEDS ORDERED: BACITRACIN OINT 500 UNITS/GM PKT TP ONE (18:30)
[2022-11-27 18:49] LABS: APPEARANCE,URINE CLEAR (CLEAR); BILIRUBIN,URINE 1+ (NEGATIVE); BLOOD, URINE NEGATIVE (NEGATIVE); COLOR,URINE YELLOW (YELLOW); LEUKOCYTE ESTERASE ,URINE NEGATIVE (NEGATIVE); NITRITE, URINE NEGATIVE (NEGATIVE); UGLUCOSE NEGATIVE (NEGATIVE)
[2022-11-27] MEDS ORDERED: SILV-55 TP (19:01)
[2022-11-27] MEDS ORDERED: BACI-416 TP (19:01)
[2022-11-27] MEDS ORDERED: IBUP-2213 PO (19:01)
--- NOTE | 2022-11-27 19:20 | NUR ---
Report given to TOBIAS Wright for transfer of care.
--- NOTE | 2022-11-27 19:53 | NUR ---
Patient discharged with v/s stable. Written and verbal after care instructions given and explained. Patient alert, oriented and verbalized understanding of instructions. Ambulatory with steady gait. All questions addressed prior to discharge. ID band removed. Patient advised to follow up with PMD. Rx of BACITRACIN, IBUPROFEN, AND SILVADENE 1% given. Opportunity to ask questions provided and answered. DR. HUERTAS ORDERS REINFORCED
--- NOTE | 2022-11-27 19:59 | NUR ---
The patient's care was reviewed and supervised by Livia Gonzales RN, RN.
== END 2022-11-27 19:53 | disposition home or self-care (01) ==
LOC: MED 17:45
DX: T21.27XA Burn of second degree of female genital region, initial encounter (principal); J45.909 Unspecified asthma, uncomplicated; I10 Essential (primary) hypertension; Z79.899 Other long term (current) drug therapy; Z79.1 Long term (current) use of non-steroidal anti-inflammatories (NSAID); Z79.2 Long term (current) use of antibiotics; X19.XXXA Contact with other heat and hot substances, initial encounter; Y93.89 Activity, other specified; Y92.89 Other specified places as the place of occurrence of the external cause; Y99.8 Other external cause status
CPT/HCPCS: 16000; 81003; 90471; 90715; 96372; 99284; J1885

== ENCOUNTER 2023-02-20 08:06 | Emergency (ER) | payer BC, OTHER ==
[~2023-02-20] VITALS: Ht 162.6 cm; Wt 113.4 kg
[~2023-02-20 08:06] MED LIST changes: +BACI-418 TP; +SILV-55 TP
[2023-02-20 08:16] VITALS: BP 117/71; PULSE 81; RESP 16; TEMP 97; O2SAT 96
[2023-02-20] MEDS ORDERED: KETOROLAC 30 MG/ML VIAL IVP ONE (08:35)
[2023-02-20] MEDS ORDERED: NACL 0.9% 1,000 ML IV ONE (08:35)
[2023-02-20] MEDS ORDERED: PHEN-1877 PO (08:41)
[2023-02-20] MEDS ORDERED: CIPR500T4 PO (08:41)
[2023-02-20] MEDS ORDERED: IBUP-2213 PO (08:41)
[2023-02-20] MEDS ORDERED: ONDA8TAB87 PO (09:53)
[2023-02-20 10:24] VITALS: BP 126/76; PULSE 74; RESP 14; TEMP 97.8; O2SAT 100
== END 2023-02-20 10:22 | disposition home or self-care (01) ==
LOC: MED 08:06
DX: N12 Tubulo-interstitial nephritis, not specified as acute or chronic (principal); N39.0 Urinary tract infection, site not specified; J45.909 Unspecified asthma, uncomplicated; I25.10 Atherosclerotic heart disease of native coronary artery without angina pectoris; Z79.899 Other long term (current) drug therapy; Z90.49 Acquired absence of other specified parts of digestive tract
CPT/HCPCS: 81002; 81025; 87086; 96361; 96374; 99283; J1885; J7030

== ENCOUNTER 2023-11-24 11:55 | Emergency (ER) | payer BC, OTHER ==
[~2023-11-24] VITALS: Ht 162.6 cm; Wt 106.1 kg
[~2023-11-24 11:55] MED LIST changes: +NAPR-337 PO; -NAPR-54 PO
[2023-11-24 12:16] VITALS: BP 100/62; PULSE 93; RESP 18; TEMP 98.3; O2SAT 99
[2023-11-24] MEDS ORDERED: LIDOCAINE MPF 1% 5 ML ONE (15:42)
[2023-11-24] MEDS: LIDOCAINE MPF 1% 10 MG/ML VIAL INJ ONE (16:30)
[2023-11-24] MEDS: KETOROLAC 30 MG/ML VIAL IM ONE (16:40)
[2023-11-24] MEDS ORDERED: IBUP-2213 PO (17:16)
[2023-11-24] MEDS ORDERED: SULF-59 PO (17:16)
[2023-11-24 17:43] VITALS: BP 108/66; PULSE 70; RESP 18; TEMP 98.3; O2SAT 99
== END 2023-11-24 17:43 | disposition home or self-care (01) ==
LOC: MED 11:55
DX: J86.9 Pyothorax without fistula (principal); L03.313 Cellulitis of chest wall; I10 Essential (primary) hypertension; Z79.899 Other long term (current) drug therapy
CPT/HCPCS: 10060; 81025; 96372; 99284; J1885; J2001

== ENCOUNTER 2024-03-23 12:26 | Emergency (ER) | payer MEDICAID, OTHER ==
[~2024-03-23] VITALS: Ht 162.6 cm; Wt 98.2 kg
[~2024-03-23 12:26] MED LIST changes: +SULF-59 PO
[2024-03-23 12:38] VITALS: BP 112/62; PULSE 83; RESP 17; TEMP 98.6; O2SAT 99
[2024-03-23 13:14] LABS: BILIRUBIN,URINE NEGATIVE (NEGATIVE); BLOOD, URINE TRACE-I (NEGATIVE); COLOR,URINE YELLOW (YELLOW); LEUKOCYTE ESTERASE ,URINE 3+ (NEGATIVE); NITRITE, URINE NEGATIVE (NEGATIVE); PROTEIN,URINE TRACE (NEGATIVE); UGLUCOSE NEGATIVE (NEGATIVE); UROBILINOGEN,URINE 0.2 EU/dL (0.2 - 1)
[2024-03-23 14:03] LABS: APPEARANCE,URINE SLIGHTLY CLOUDY (CLEAR)
[2024-03-23 14:06] LABS: BACTERIA,URINE 2+ /HPF (None Seen); RBC,URINE 0-5 /HPF (0-5); SQUAMOUS EPITHELIAL CELL,UR 4-10 (MOD) /LPF (0-3 (FEW))
[2024-03-23 14:07] LABS: MUCUS,URINE None Seen /LPF (None Seen)
[2024-03-23 14:44] VITALS: BP 112/62; PULSE 83; RESP 17; TEMP 98.6; O2SAT 99
== END 2024-03-23 14:44 | disposition home or self-care (01) ==
LOC: MED 12:26
DX: N39.0 Urinary tract infection, site not specified (principal); I10 Essential (primary) hypertension; Z90.49 Acquired absence of other specified parts of digestive tract; Z79.899 Other long term (current) drug therapy
CPT/HCPCS: 72170; 81001; 81025; 87086; 87186; 99284

== ENCOUNTER 2024-04-23 02:48 | Emergency (ER) | payer MEDICAID, OTHER ==
[~2024-04-23] VITALS: Ht 162.6 cm; Wt 99.8 kg
[2024-04-23 03:29] VITALS: BP 106/53; PULSE 82; RESP 18; TEMP 97.8; O2SAT 97
[2024-04-23 04:06] LABS: APPEARANCE,URINE HAZY (CLEAR); BILIRUBIN,URINE NEGATIVE (NEGATIVE); BLOOD, URINE NEGATIVE (NEGATIVE); COLOR,URINE YELLOW (YELLOW); LEUKOCYTE ESTERASE ,URINE 1+ (NEGATIVE); NITRITE, URINE NEGATIVE (NEGATIVE); PROTEIN,URINE NEGATIVE (NEGATIVE); UGLUCOSE NEGATIVE (NEGATIVE); UROBILINOGEN,URINE 0.2 EU/dL (0.2 - 1)
[2024-04-23 04:21] LABS: BACTERIA,URINE 2+ /HPF (None Seen); MUCUS,URINE 1+ /LPF (None Seen); RBC,URINE 0-5 /HPF (0-5); WBC,URINE >25 (MANY) /HPF (0-5)
[2024-04-23] MEDS ORDERED: cefTRIAXone 1,000 MG VIAL ONE (05:13)
[2024-04-23] MEDS: NACL 0.9% 1,000 ML IV ONE (05:21)
[2024-04-23] MEDS: KETOROLAC 30 MG/ML VIAL IVP ONE (05:26)
[2024-04-23] MEDS ORDERED: CIPR500T4 PO (06:06)
[2024-04-23 06:27] VITALS: BP 118/66; PULSE 74; RESP 12; TEMP 97.8; O2SAT 98
== END 2024-04-23 06:28 | disposition home or self-care (01) ==
LOC: MED 02:48
DX: N39.0 Urinary tract infection, site not specified (principal); I10 Essential (primary) hypertension; Z79.899 Other long term (current) drug therapy
CPT/HCPCS: 81001; 87086; 87186; 96365; 96375; 99284; J0696; J1885; J7030